=== PATIENT | male | born 1935 | race Caucasian/White ===

== ENCOUNTER 2020-01-17 21:14 | Emergency (ER) | payer MEDICARE, OTHER | END 2020-01-17 21:39 | disposition left against medical advice (07) | LOC: ED 21:14 | DX: Z53.21 Procedure and treatment not carried out due to patient leaving prior to being seen by health care provider (principal) ==

== ENCOUNTER 2020-05-25 15:03 | Outpatient (CLI) | payer MEDICARE, OTHER | END 2020-05-25 15:04 | disposition home or self-care (01) | LOC: LAB 15:03 | PROVIDERS: ATTEND Physician Assistant | DX: C61 Malignant neoplasm of prostate (principal) | CPT/HCPCS: 36415; 84153; 84403 ==

== ENCOUNTER 2020-06-15 15:10 | Outpatient (CLI) | payer MEDICARE, OTHER ==
--- NOTE | 2020-06-15 16:22 | DEXA Report ---
Reason: ANDROGEN DEPRIVATION THERAPY Procedure Date: 06/15/2020 Accession Number: [id number] / [id number] Procedure: DEX - Dexa Spine and/or Hip CPT Code: Final Report FULL RESULT: PROCEDURE: Dexa Spine and/or Hip INDICATIONS: ANDROGEN DEPRIVATION THERAPY TECHNIQUE: Dual energy x-ray absorptiometry (DXA) was performed on a [employer] System. Regions measured are the AP Spine, femoral neck, and if needed forearm. COMPARISON: None. FINDINGS: Lumbar Spine: Bone Mineral Density 1.634 g/cm/cm,T score 3.5 Left Hip: Bone Mineral Density 1.085 g/cm/cm,T score -0.1 Left Femoral Neck: Bone Mineral Density 0.998 g/cm/cm, T score -0.6 (T score greater or equal to -1.0: NORMAL) (T score from -1.1 to -2.4: OSTEOPENIA) (T score less than or equal to -2.5 to: OSTEOPOROSIS) Impression: Based on WHO criteria, the patient bone density is within normal limits. Apparent increased bone density in lumbar spine is likely partially related to degenerative changes. Patients with diagnosis of osteoporosis or osteopenia should have regular bone mineral density assessment. For those eligible for Medicare, routine testing is allowed once every 2 years. Testing frequency can be increased for patients who have rapidly progressing disease or for those who are receiving medical therapy to restore bone mass. Reviewed by: González Willoughby MD on 06/15/2020 4:21 PM PDT Approved by: González Willoughby MD on 06/15/2020 4:21 PM PDT Station ID: [id number]
== END 2020-06-15 15:11 | disposition home or self-care (01) ==
LOC: DI 15:10
PROVIDERS: ATTEND Physician Assistant
DX: C61 Malignant neoplasm of prostate (principal); Z79.818 Long term (current) use of other agents affecting estrogen receptors and estrogen levels; E29.1 Testicular hypofunction
CPT/HCPCS: 77080

== ENCOUNTER 2020-11-25 13:44 | Outpatient (CLI) | payer MEDICARE, OTHER ==
[2020-11-25 14:48] LABS: PSA FREE 0.23 ng/mL (0.16-2.81)
[2020-11-25 14:49] LABS: PSA TOTAL 2.13 ng/mL (0.000-2.000)
== END 2020-11-25 13:45 | disposition home or self-care (01) ==
LOC: LAB 13:44
PROVIDERS: ATTEND Urology
DX: C61 Malignant neoplasm of prostate (principal)
CPT/HCPCS: 36415; 84153; 84154

== ENCOUNTER 2020-12-17 08:00 | Outpatient (CLI) | payer MEDICARE, OTHER | END 2020-12-17 23:59 | disposition home or self-care (01) | LOC: LAB 08:00 | PROVIDERS: ATTEND Urology | DX: C61 Malignant neoplasm of prostate (principal) | CPT/HCPCS: 36415; 84403 ==

== ENCOUNTER 2021-07-19 13:52 | Outpatient (CLI) | payer MEDICARE ==
[2021-07-19 14:19] LABS: BASOPHILS % (AUTO) 0.5 %; EOSINOPHILS # (AUTO) 0.3 10^3/uL (0.0-0.7); EOSINOPHILS % (AUTO) 3.3 %; HCT - HEMATOCRIT 45.7 % (42.0-52.0); HGB - HEMOGLOBIN 15.9 g/dL (14.0-18.0); LYMPHOCYTES # (AUTO) 2.6 10^3/uL (1.5-3.5); LYMPHOCYTES % (AUTO) 33.5 %; MEAN CORPUSCULAR HEMOGLOBIN 29.9 pg (27.0-31.0); MEAN CORPUSCULAR HGB CONC 34.8 g/dL (32.0-36.0); MEAN CORPUSCULAR VOLUME 85.9 fL (80.0-94.0); MEAN PLATELET VOLUME 9.2 fL (7.4-11.4); MONOCYTES # (AUTO) 0.4 10^3/uL (0.0-1.0); MONOCYTES % (AUTO) 5.2 %; NEUTROPHILS # (AUTO) 4.5 10^3/uL (1.5-6.6); NEUTROPHILS % (AUTO) 57.2 %; PLT - PLATELET COUNT 249 10^3/uL (130-450); RED BLOOD COUNT 5.32 10^6/uL (4.70-6.10); RED CELL DISTRIBUTION WIDTH 13.6 % (12.0-15.0); WHITE BLOOD COUNT 7.8 x10^3/uL (4.8-10.8)
[2021-07-19 14:34] LABS: ALBUMIN 4.5 g/dL (3.2-5.5); ALBUMIN/GLOBULIN RATIO 1.5 (1.0-2.2); BILIRUBIN,TOTAL 0.9 mg/dL (0.2-1.0); CALCIUM 9.9 mg/dL (8.5-10.3); POTASSIUM 3.6 mmol/L (3.5-5.0); TOTAL PROTEIN 7.6 g/dL (6.7-8.2)
== END 2021-07-19 13:53 | disposition home or self-care (01) ==
LOC: LAB 13:52
PROVIDERS: ATTEND Family Medicine
DX: C61 Malignant neoplasm of prostate (principal)
CPT/HCPCS: 36415; 80053; 84153; 85025

== ENCOUNTER 2021-11-24 16:12 | Outpatient (CLI) | payer MEDICARE, OTHER | END 2021-11-24 16:13 | disposition home or self-care (01) | LOC: LAB 16:12 | PROVIDERS: ATTEND Urology | DX: C61 Malignant neoplasm of prostate (principal) | CPT/HCPCS: 36415; 84153 ==

== ENCOUNTER 2022-05-30 14:33 | Emergency (ER) | payer MEDICARE, OTHER ==
[2022-05-30 14:47] VITALS: BP 196/73
--- NOTE | 2022-05-30 15:45 | XRAY Report ---
PROCEDURE: Chest 2 View X-Ray INDICATIONS: cough TECHNIQUE: 2 view(s) of the chest. COMPARISON: None. FINDINGS: Surgical changes and devices: None. Lungs and pleura: No pleural effusions or pneumothorax. Lungs are clear. Mediastinum: Mediastinal contours are normal. Heart size is normal. Bones and chest wall: No suspicious bony abnormalities. Soft tissues appear unremarkable. IMPRESSION: No acute cardiopulmonary pathology. Reviewed by: Anoop Ruano MD on 05/30/2022 3:44 PM PDT Approved by: Anoop Ruano MD on 05/30/2022 3:44 PM PDT Station ID: [id number]
--- NOTE | 2022-05-30 16:13 | ED Physician Documentation ---
PD HPI DYSPNEA - Stated complaint Stated Complaint: COUGH FOR 5 DAYS - Chief complaint Chief Complaint: Resp - Additional information Additional information: Patient comes emergency department chief complaint of cough. He states that he developed URI type symptoms little over a week ago and that he continues to have a cough and was just concerned that it was lasting so long. He denies fevers or chills. No shortness of breath or chest pain. No sore throat. No GI symptoms. No other complaints at this time. No underlying lung disease. Review of Systems Ten Systems: 10 systems reviewed and negative Constitutional: reports: Reviewed and negative Eyes: reports: Reviewed and negative Ears: reports: Reviewed and negative Nose: reports: Reviewed and negative Throat: reports: Reviewed and negative Cardiac: reports: Reviewed and negative Respiratory: reports: Cough GI: reports: Reviewed and negative : reports: Reviewed and negative Skin: reports: Reviewed and negative Musculoskeletal: reports: Reviewed and negative Neurologic: reports: Reviewed and negative Psychiatric: reports: Reviewed and negative Endocrine: reports: Reviewed and negative Immunocompromised: reports: Reviewed and negative PD PAST MEDICAL HISTORY - Past Medical History Cardiovascular: Hypertension Respiratory: None Neuro: None Endocrine/Autoimmune: None GI: None : Incontinence, Frequency, Kidney stones, Other Musculoskeletal: Other Derm: None - Present Medications Home Medications: Ambulatory Orders Medication Instructions Recorded Confirmed Abiraterone Acetate 250 mg PO DAILY 12/24/21 05/13/22 Duloxetine HCl [Cymbalta] 60 mg PO DAILY 12/24/21 05/13/22 Lisinopril [Zestril] 20 mg PO DAILY 12/24/21 05/13/22 predniSONE [Deltasone] 5 mg PO DAILY 12/27/21 05/13/22 - Allergies Allergies/Adverse Reactions: Allergies Allergy/AdvReac Type Severity Reaction Status Date / Time No Known Drug Allergies Allergy Verified 05/30/22 14:47 - Social History Smoking Status: Never smoker PD ED PE NORMAL - Vitals Vital signs reviewed: Yes - General General: Alert and oriented X 3, No acute distress, Well developed/nourished - HEENT HEENT: Atraumatic, PERRL, EOMI, Moist mucous membranes - Neck Neck: Supple, no meningeal sign - Cardiac Cardiac: RRR, No murmur - Respiratory Respiratory: No respiratory distress, Clear bilaterally - Abdomen Abdomen: Soft, Non tender, Non distended - Derm Derm: Normal color, Warm and dry, No rash - Extremities Extremities: No deformity, No edema - Neuro Neuro: Alert and oriented X 3, 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 X-ray was negative, as was the COVID test. The patient actually is fairly well- appearing, has good oxygen saturation, and really has complaint of lingering cough only. I felt he was stable for discharge. Departure - Departure Disposition: 01 Home, Self Care Clinical Impression: Cough Qualifiers: Cough type: acute Qualified Code(s): R05.1 - Acute cough Condition: Stable Instructions: ED Viral Syndrome Discharge Date/Time: 05/30/22 16:14
== END 2022-05-30 16:14 | disposition home or self-care (01) ==
LOC: ED 14:33
DX: R05.1 Acute cough (principal); Z20.822 Contact with and (suspected) exposure to COVID-19
CPT/HCPCS: 71046; 99282; 99284; U0004

== ENCOUNTER 2022-08-14 15:20 | Emergency (ER) | payer MEDICARE, OTHER ==
[2022-08-14 15:39] VITALS: BP 167/63
--- NOTE | 2022-08-14 16:22 | CT Report ---
PROCEDURE: CT chest without contrast INDICATIONS: R rib pain s/p fall TECHNIQUE: Noncontrast 1mm axial images were acquired from the pulmonary apices to the posterior costophrenic an gles. Axial 5 mm soft tissue kernel reconstructions were performed as well as 8 mm axial MIP and cor onal and sagittal 5 mm reformations. For radiation dose reduction, the following was used: automate d exposure control, adjustment of mA and/or kV according to patient size. COMPARISON: None FINDINGS: Image quality: Excellent. Lungs and pleura: No acute air space opacities. No pleural effusions or pneumothorax. Central and peripheral airways are patent and normal in caliber. Mediastinum: Heart size is normal. No pericardial effusion. No mediastinal adenopathy by size crit eria. Thoracic aorta and central pulmonary arteries are normal in size. Dense thoracic aorta as desc ribed vascular calcification noted. Esophagus is normal in caliber. Small hiatal hernia. Bones and chest wall: Nondisplaced right lateral seventh rib fracture and possible eighth rib fractur e. No pulmonary contusion or pneumothorax. Incidental fused anterior osteophytes noted in the mid to lower thoracic spine Abdomen: Visualized upper abdominal solid organs and bowel loops appear normal in the absence of con trast. Surgical clips in the gallbladder fossa. A partially imaged right renal cyst and left renal n onobstructive calculus. IMPRESSION: 1 nondisplaced right lateral seventh and eighth rib fractures. No pulmonary contusion or pneumothorax . 2. 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 Reviewed by: Isai Coates MD on 08/14/2022 3:20 PM AKDT Approved by: Isai Coates MD on 08/14/2022 3:20 PM AKDT Station ID: [id number]
[2022-08-14] MEDS ORDERED: ONDANSETRON ODT 4 MG TABLET TL STA (16:43)
--- NOTE | 2022-08-14 16:46 | ED Physician Documentation ---
History of Present Illness - Stated complaint Stated Complaint: RIB PX - Chief complaint Chief Complaint: Trauma Ch/Bk - History obtained from History obtained from: Patient - Additonal information Additional information: The patient comes to the emergency department chief complaint of right lateral rib pain after falling against a metal pipe today. He states he was out walking his dog and he tripped and fell against a pipe of the dog walk area. He states he just injured the same area about 3 weeks [place] The patient states it hurts to take a deep breath but he does not otherwise feel short of breath. No fevers. No other injuries whatsoever. The injury just happened about an hour ago. Review of Systems Ten Systems: 10 systems reviewed and negative Constitutional: reports: Reviewed and negative Eyes: reports: Reviewed and negative Ears: reports: Reviewed and negative Nose: reports: Reviewed and negative Throat: reports: Reviewed and negative Cardiac: reports: Chest pain / pressure Respiratory: reports: Reviewed and negative GI: reports: Reviewed and negative : reports: Reviewed and negative Skin: reports: Reviewed and negative Musculoskeletal: reports: Reviewed and negative Neurologic: reports: Reviewed and negative Psychiatric: reports: Reviewed and negative Endocrine: reports: Reviewed and negative Immunocompromised: reports: Reviewed and negative PD PAST MEDICAL HISTORY - Past Medical History Cardiovascular: Hypertension Respiratory: None Neuro: None Endocrine/Autoimmune: None GI: None : Incontinence, Frequency, Kidney stones, Other Musculoskeletal: Other Derm: None - Present Medications Home Medications: Ambulatory Orders Medication Instructions Recorded Confirmed Abiraterone Acetate 250 mg PO DAILY 12/24/21 05/13/22 Duloxetine HCl [Cymbalta] 60 mg PO DAILY 12/24/21 05/13/22 Lisinopril [Zestril] 20 mg PO DAILY 12/24/21 05/13/22 predniSONE [Deltasone] 5 mg PO DAILY 12/27/21 05/13/22 HYDROcod/ACETAM 5/325 [[place] 5/325] 1 - 2 tablet PO Q6H PRN #14 tablet 08/14/22 - Allergies Allergies/Adverse Reactions: Allergies Allergy/AdvReac Type Severity Reaction Status Date / Time No Known Drug Allergies Allergy Verified 08/14/22 15:39 - Social History Smoking Status: Never smoker PD ED PE NORMAL - Vitals Vital signs reviewed: Yes - General General: Alert and oriented X 3, No acute distress, Well developed/nourished - HEENT HEENT: Atraumatic, PERRL, EOMI, Moist mucous membranes - Neck Neck: Supple, no meningeal sign - Cardiac Cardiac: RRR, No murmur, Strong equal pulses - Respiratory Respiratory: No respiratory distress, Clear bilaterally - Abdomen Abdomen: Soft, Non tender, Non distended - Derm Derm: Normal color, Warm and dry, No rash - Extremities Extremities: No deformity, No edema - Neuro Neuro: Alert and oriented X 3, 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, No motor deficit, No sensory deficit, Normal speech - Psych Psych: Normal mood, Normal affect Results - Vitals Vitals: Vital Signs - 24 hr 08/14/22 15:36 Temperature 36.0 C L Heart Rate 50 L Respiratory 22 Rate Blood Pressure 167/63 H O2 Saturation 100 Oxygen O2 Source Room air - Rads (name of study) CT chest Radiology: Final report received, EMP read indepedently, See rad report (Nondisplaced fractures seventh and eighth ribs on the right without pneumothorax or pulmonary contusion.) PD MEDICAL DECISION MAKING - ED course Complexity details: reviewed results, re-evaluated patient, considered differential, d/w patient ED course: The patient stated he had to drive home and declined any pain medication in the emergency department but did feel somewhat nauseated, and was given an ODT Zofran for this. I have sent prescriptions for analgesia to his preferred pharmacy. We have discussed symptomatic management at home as well as the usual indications for return. Departure - Departure Disposition: 01 Home, Self Care Clinical Impression: Fracture of rib Qualifiers: Encounter type: initial encounter Rib fracture type: multiple ribs Fracture type: closed Laterality: right Qualified Code(s): S22.41XA - Multiple fractures of ribs, right side, initial encounter for closed fracture Condition: Stable Instructions: ED Fx Rib Prescriptions: HYDROcod/ACETAM 5/325 [[place] 5/325] 1 - 2 tablet PO Q6H PRN #14 tablet PRN Reason: Pain Comments: The CT scan of your chest shows 2 broken ribs on the right but no damage to the underlying tissues or to the lungs. A prescription for pain medication has been electronically transmitted to [facility] in [place]. This injury will take several weeks to heal, although the pain will begin to gradually subside after the first several days to a week. You may use a large Gavin wrap or to to wrap around your chest if she wished to have some extra support. You can also purchase a chest binder at most pharmacies, and this can also help give some support. As we discussed, pneumonia is an unfortunate complication of rib fracture that is due to failure to breathe deeply on a regular basis. As such, you should aim to take several deep breaths per hour to be sure your lungs are being properly aerated. If you develop fever or cough, please seek medical reevaluation.
== END 2022-08-14 17:07 | disposition home or self-care (01) ==
LOC: ED 15:20
DX: S22.41XA Multiple fractures of ribs, right side, initial encounter for closed fracture (principal); W01.198A Fall on same level from slipping, tripping and stumbling with subsequent striking against other object, initial encounter; Y93.K1 Activity, walking an animal; Y92.830 Public park as the place of occurrence of the external cause
CPT/HCPCS: 71250; 99282; 99284; Q0162